=== PATIENT | female | born 2000 | race African-American/Black ===

== ENCOUNTER 2023-07-28 20:04 | Outpatient (CLI) | payer OTHER ==
[~2023-07-28] VITALS: Ht 175.3 cm; Wt 91.9 kg
[2023-07-28] MEDS ORDERED: PRENTAB9 PO (20:16)
[2023-07-28 20:22] VITALS: BP 123/74
[2023-07-28] MEDS ORDERED: HOME MED LIST COMPLETE! XX SCH (20:25)
== END 2023-07-28 21:49 | disposition home or self-care (01) ==
LOC: M LDO 20:04
PROVIDERS: ATTEND Obstetrics & Gynecology
DX: O26.893 Other specified pregnancy related conditions, third trimester (principal); R10.2 Pelvic and perineal pain; Z3A.35 35 weeks gestation of pregnancy
CPT/HCPCS: 59025; G0463

== ENCOUNTER 2023-08-25 18:17 | Inpatient (IN) | payer OTHER ==
[~2023-08-25] VITALS: Ht 175.3 cm; Wt 93.7 kg
[~2023-08-25 18:17] MED LIST: PRENTAB9 PO
[2023-08-25 18:36] VITALS: BP 141/97
[2023-08-25 18:45] VITALS: BP 148/100
[2023-08-25] MEDS ORDERED: HOME MED LIST COMPLETE! XX SCH (18:45)
[2023-08-25] MEDS ORDERED: OXYTOCIN DRIP 30 UNITS in IV 1 EA IV PRN (19:25)
[2023-08-25] MEDS ORDERED: CARBOPROST TROMETHAMINE 250 MCG/ML AMP IM PRN (19:25)
[2023-08-25] MEDS ORDERED: TRANEXAMIC ACID INJection 1,000 MG in NS 100 ML IV PRN (19:25)
[2023-08-25] MEDS ORDERED: METHYLERGONOVINE MALEATE 0.2MG/ML 1ML VIAL IM PRN ×2 (19:25→21:20)
[2023-08-25] MEDS ORDERED: LR 1,000 ML IV SCH (19:25)
[2023-08-25 19:54] LABS: HEMATOCRIT 41.4 % (36.0-47.0); HEMOGLOBIN 13.9 g/dl (12.0-15.5); MEAN CORPUSCULAR HEMOGLOBIN 28.5 pg (27.0-33.0); MEAN CORPUSCULAR HGB CONC 33.6 g/dl (32.0-36.5); PLATELET COUNT, AUTOMATED 291 10^3/uL (150-450); RED BLOOD COUNT 4.87 10^6/uL (4.00-5.40)
[2023-08-25] MEDS: PENICILLIN G POTASSIUM 5 MU IV 5 MU in D5W MINI-BAG PLUS 100 ML IV STA (19:59)
[2023-08-25] MEDS: LIDOCAINE 1% MDV 20ML VIAL INFIL PRN (20:52)
[2023-08-25] MEDS: LR 1,000 ML IV SCH (21:20)
[2023-08-25] MEDS ORDERED: DOCUSATE SODIUM 100MG CAPSULE PO PRN (21:20)
[2023-08-25] MEDS ORDERED: IBUPROFEN 600MG TAB PO PRN (21:20)
[2023-08-25] MEDS: OXYTOCIN DRIP 30 UNITS in IV 1 EA IV SCH (21:20)
[2023-08-25] MEDS ORDERED: IBUPROFEN 800 MG TAB PO PRN (21:20)
[2023-08-25] MEDS ORDERED: RHOGAM 300MCG (1500IU) INJ IM SCH (21:20)
[2023-08-25] MEDS ORDERED: ONDANSETRON 4MG 2ML VIAL IV PRN (21:20)
[2023-08-25] MEDS ORDERED: METOCLOPRAMIDE INJ 10MG/2ML VIAL IV PRN (21:20)
[2023-08-25] MEDS ORDERED: ACETAMINOPHEN TAB 650MG DOSE (2X325MG) PO PRN (21:20)
[2023-08-25] MEDS ORDERED: DIBUCAINE 1% OINTMENT 30GM TOP PRN (21:20)
[2023-08-25] MEDS ORDERED: ACETAMINOPHEN 500 MG TAB PO PRN (21:20)
[2023-08-25 22:00] VITALS: BP 129/84; O2SAT 98
[2023-08-25] MEDS ORDERED: PEN G POT 3,000,000 UNIT/50 ML 3,000,000 UNIT in IV 1 EA IV SCH (23:45)
[2023-08-26 06:00] VITALS: BP 130/73; O2SAT 100
[2023-08-26] MEDS: PRENATAL VITAMINS CHEWABLE TABLET PO SCH (08:06)
[2023-08-26 18:00] VITALS: BP 131/71; O2SAT 99
[2023-08-27 06:00] VITALS: BP 127/87; O2SAT 100
[2023-08-27] MEDS: MEASLES,MUMPS,RUBELLA VACCINE INJ (MMR-II) SC.IMMUN ONE (15:22)
[2023-08-27 18:00] VITALS: BP 135/84; O2SAT 100
== END 2023-08-27 18:30 | disposition home or self-care (01) | DRG 807 ==
LOC: M LDO 18:17 → M LDI 19:13 → M OBS 22:39
PROVIDERS: ADMIT Obstetrics & Gynecology; ATTEND Obstetrics & Gynecology
PROC: 10E0XZZ Delivery of Products of Conception, External Approach (ICD-10-PCS; principal; 2023-08-25)
PROC: 0HQ9XZZ Repair Perineum Skin, External Approach (ICD-10-PCS; 2023-08-25)
DX: O62.3 Precipitate labor (principal); Z37.0 Single live birth; Z3A.39 39 weeks gestation of pregnancy; O99.820 Streptococcus B carrier state complicating pregnancy; O70.0 First degree perineal laceration during delivery